=== PATIENT | female | born 1940 | race Asian ===

== ENCOUNTER 2016-11-28 10:26 | Emergency (ER) | payer OTHER ==
[~2016-11-28] VITALS: Ht 162.6 cm; Wt 39.9 kg
[~2016-11-28 10:26] MED LIST: ACYCLOVIR800 MG PO; ALLOPURINOL100 MG PO; ASPIR 8181 MG PO; ATORVASTATIN CA40 M1 PO; CARAFATE1 GM PO; CLOPIDOGREL75 M1 PO; FAMOTIDINE20 MG PO; FERROUS SULFAT325 M2 PO; LEVOTHYROXIN0.025 M2; LEVOTHYROXIN0.025 M2 PO; LIPITOR40 MG PO; METOPROLOL SUCC25 M1 PO; NORCO1 TA2 PO; PREDNISONE20 MG PO; PROTONIX40 MG PO; TRAMADOL HCL50 MG PO; VITAMIN C100 M1 PO; ZOF4 PO
[2016-11-28 13:56] VITALS: BP 132/74
== END 2016-11-28 13:56 | disposition home or self-care (01) ==
LOC: ED 10:26
DX: S42.295A Other nondisplaced fracture of upper end of left humerus, initial encounter for closed fracture (principal); S59.902A Unspecified injury of left elbow, initial encounter; E78.00 Pure hypercholesterolemia, unspecified; M06.9 Rheumatoid arthritis, unspecified; M81.0 Age-related osteoporosis without current pathological fracture; K21.9 Gastro-esophageal reflux disease without esophagitis; E03.9 Hypothyroidism, unspecified; Z90.89 Acquired absence of other organs; W18.39XA Other fall on same level, initial encounter; Y93.01 Activity, walking, marching and hiking; Y92.480 Sidewalk as the place of occurrence of the external cause; Y99.8 Other external cause status
CPT/HCPCS: J3010; Q0092; Q0162

== ENCOUNTER 2016-11-30 16:52 | Emergency (ER) | payer OTHER ==
[2016-11-30 18:07] LABS: BASOPHIL % 0.4 % (0-2); PLATELET COUNT 266 x10^3mcL (130-400)
[2016-11-30 18:14] LABS: RED CELL DISTRIBUTION WIDTH 15.5 % (11.5-14.5)
[2016-11-30 18:21] LABS: CALCIUM 8.8 mg/dL (8.5-10.1); CARBON DIOXIDE 24.8 mmol/L (21-32); CHLORIDE SERUM 96 mmol/L (98-107); GLUCOSE SERUM 148 mg/dL (74-106); POTASSIUM SERUM 4.1 mmol/L (3.5-5.1); SODIUM SERUM 131 mmol/L (136-145)
[2016-11-30 18:26] LABS: ALKALINE PHOSPHATASE 83 U/L (46-116); ALT/SGPT 18 U/L (14-59); AST/SGOT 39 U/L (15-37); BILIRUBIN TOTAL 1.49 mg/dL (0.20-1.00); TOTAL PROTEIN, SERUM 7.5 g/dL (6.4-8.2)
[2016-11-30 20:01] VITALS: BP 122/66
== END 2016-11-30 20:01 | disposition home or self-care (01) ==
LOC: ED 16:52
PROVIDERS: Emergency Medicine
DX: E87.1 Hypo-osmolality and hyponatremia (principal)
CPT/HCPCS: J7030